=== PATIENT | male | born 1970 | race Caucasian/White ===

== ENCOUNTER 2020-11-18 15:23 | Emergency (ER) | payer BC, OTHER ==
[~2020-11-18] VITALS: Ht 177.8 cm; Wt 105.4 kg
[2020-11-18] MEDS ORDERED: FLUORESCEIN (FLUOR-I-STRIPS) 1 MG STRP ONE (15:24)
[2020-11-18] MEDS ORDERED: TETRACAINE 0.5% OPHTH SOLN 4 ML BTL (SINGLE DOSE ONLY) ONE (15:24)
[2020-11-18 15:25] VITALS: BP 166/92
--- NOTE | 2020-11-18 15:28 | ED EENT ---
History of Present Illness General Stated Complaint: LT EYE FOREIGN OBJECT History of Present Illness Date Seen by Provider: Nov 18, 2020 Time Seen by Provider: 15:27 Initial Comments 50-year-old male presents with what he feels like he has a foreign body in his left eye. Patient reports he was working on a boat when he got some dirt or metal in it. He noticed it first about an hour and a half ago. He flushes at home but still feels like there is something in it. He does not have any vision changes. Allergies and Home Medications Allergies Coded Allergies: No Known Drug Allergies (Unverified , 11/18/20) Home Medications Tobramycin/Dexamethasone 5 Ml Drops.susp, 2 DROPS OP Q6H Prescribed by: GRICELDA BENOIT on 11/18/20 [id number] Patient Home Medication List Home Medication List Reviewed: Yes Review of Systems Review of Systems Constitutional: No chills, No fever Eyes: See HPI Ears: No Symptoms Reported Nose: no symptoms reported Mouth: no symptoms reported Throat: no symptoms reported Respiratory: no symptoms reported Cardiovascular: no symptoms reported Musculoskeletal: no symptoms reported Past Iecfkdy-Qjlrad-Smudwg Hx Past Med/Social Hx: Reviewed Nursing Past Med/Soc Hx Physical Exam Vital Signs Vital Signs - First Documented 11/18/20 15:25 Temp 36.1 Pulse 92 Resp 20 B/P (MAP) 166/92 (116) Pulse Ox 99 O2 Delivery Room Air Height, Weight, BMI Height: '" Weight: lbs. oz. kg; BMI Method: General Appearance: no apparent distress Eyes: right eye normal inspection; left eye PERRL, left eye EOMI, left eye co rneal abrasion ([place] currently on bridge), left eye other (Foreign body left eye) Cardiovascular: regular rate, rhythm Respiratory: no respiratory distress, no accessory muscle use Neurologic/Psychiatric: alert, normal mood/affect, oriented x 3 Procedures/Interventions Eye : Location: left eye Eye FB Removal: removal w/ cotton swab Eye Irrigated w/ Saline (ccs): 10 Anesthesia (gtts): Tetracaine Progress/Results/Core Measures Results/Orders My Orders Orders - GRICELDA BENOIT DO Tetracaine 0.5% Ophth Elizabeth Sdv (Tetracai (11/18/20 15:30) Tetracaine 0.5% Ophth Elizabeth Sdv (Tetracai (11/18/20 15:24) Fluorescein Strips ([id number]) (11/18/20 15:24) Fluorescein Strips ([id number]) (11/18/20 15:45) Progress Progress Note : Progress Note Patient with small foreign body removed with cotton swab. Patient tolerated well. I will place him on antibiotic drop with a small abrasion. Patient discharged in stable condition Departure Impression Primary Impression: Corneal abrasion Qualified Codes: S05.02XA - Injury of conjunctiva and corneal abrasion without foreign body, left eye, initial encounter Additional Impression: Corneal FB (foreign body) Qualified Codes: T15.02XA - Foreign body in cornea, left eye, initial encounter Disposition: HOME, SELF-CARE Condition: Stable Departure-Patient Inst. Referrals: ASAEL RÍOS MD (PCP/Family) Primary Care Physician Patient Instructions: Foreign Body in Eye (DC) Add. Discharge Instructions: Follow-up with your eye doctor Friday or Friday for recheck of today's complaints Scripts Tobramycin/Dexamethasone (Tobramycin-Dexameth Ophth Susp) 5 Ml Drops.susp 2 DROPS OP Q6H for 5 Days, #1 EA Prov: GRICELDA BENOIT DO 11/18/20 GRICELDA BENOIT DO Nov 18, 2020 15:28
[2020-11-18] MEDS ORDERED: TETRACAINE 0.5% OPHTH SOLN 4 ML BTL (SINGLE DOSE ONLY) OP ONE (15:30)
[2020-11-18] MEDS ORDERED: TADA5TAB13 (15:42)
[2020-11-18] MEDS ORDERED: BENA1TAB14 (15:42)
[2020-11-18] MEDS ORDERED: FENO145T26 (15:42)
[2020-11-18] MEDS ORDERED: FLUORESCEIN (FLUOR-I-STRIPS) 1 MG STRP OU ONE (15:45)
[2020-11-18] MEDS ORDERED: TOBR5DRO12 OP (15:46)
== END 2020-11-18 15:48 | disposition home or self-care (01) ==
LOC: EDUNIT# 15:23 → ER FS 15:25
DX: T15.02XA Foreign body in cornea, left eye, initial encounter (principal); I10 Essential (primary) hypertension
CPT/HCPCS: 99282